=== PATIENT | male | born 1970 | race Caucasian/White ===

== ENCOUNTER 2017-11-26 23:09 | Emergency (ER) | payer OTHER ==
[~2017-11-26] VITALS: Ht 185.4 cm; Wt 111.1 kg
[~2017-11-26 23:09] MED LIST: ASPERDRINK81 MG PO; BYSTOLIC 5 MG5 M1 PO; CLONAZEPAM 0.50.5 M1 PO; CRESTOR40 MG PO; FLOVENT DISKUS50 MCG IH; IMDUR30 MG PO; PROAIR HFA8.5 GM IH; RANEXA500 MG PO
[2017-11-26] MEDS ORDERED: PLAVIX 75 MG TA75 M1 PO (23:24)
[2017-11-26] MEDS ORDERED: BENICAR40 MG PO (23:28)
[2017-11-26] MEDS ORDERED: PROTONIX40 M1 PO (23:29)
[2017-11-26] MEDS ORDERED: COZAAR 50 MG TA50 M2 PO (23:29)
[2017-11-26] MEDS ORDERED: LISINOPRIL10 MG PO (23:29)
== END 2017-11-26 23:55 | disposition home or self-care (01) ==
LOC: ER 23:09
DX: R04.0 Epistaxis (principal); I25.10 Atherosclerotic heart disease of native coronary artery without angina pectoris; F17.210 Nicotine dependence, cigarettes, uncomplicated; F41.9 Anxiety disorder, unspecified; Z90.89 Acquired absence of other organs; Z98.52 Vasectomy status; Z88.1 Allergy status to other antibiotic agents

== ENCOUNTER 2017-12-02 07:21 | Day surgery (SDC) | payer OTHER ==
[~2017-12-02] VITALS: Ht 182.9 cm; Wt 111.1 kg
--- NOTE | ~2017-12-02 | O ---
[facility] [place] [address] OPERATIVE REPORT Name: JONE SOUZA Liza Room #: 150-9 [facility]..#: [id number] Admission: 12/02/17 Attend Phys: Golden Baker MD Discharge: Date of : 70 Report #: [id number] THIS REPORT FOR: //name// CC: Av Baker DATE OF SERVICE: 12/02/2017 PREOPERATIVE DIAGNOSES: Deviated nasal septum, epistaxis. POSTOPERATIVE DIAGNOSES: Deviated nasal septum, epistaxis. OPERATIVE PROCEDURE: Nasal septoplasty, endoscopic control of epistaxis. ANESTHESIA: General by laryngeal mask. DESCRIPTION OF PROCEDURE: The patient was taken to the operating room and placed in supine position. General anesthesia was induced by laryngeal mask. Once adequate general anesthesia was obtained, local nasal anesthesia was induced by submucoperichondrial injection of 1% lidocaine with 1:100,000 epinephrine and topical application of cocaine solution. The patient was then draped in a sterile manner. The nasal endoscope was used to visualize the left nasal cavity. There were areas that had been previously cauterized, and I debrided these areas of granulation tissue. There was some mild oozing in these areas, but there was no evidence of severe blood vessel bleeding. Nasal septoplasty performed by placing a hemitransfixion incision on the left side of the nose, and the mucoperichondrium and mucoperiosteum were elevated off the septum. The cartilage was incised from the bony cartilaginous junction, and then, a portion of cartilage and bone was removed from the midportion of the septum. Along the floor was a septal spur consisting of hypertrophic cartilage and a fracture of the maxillary crest. The cartilage was removed as a long strip, and the maxillary crest was rongeured and infractured. After these maneuvers, the septum sat more in the midline. The hemitransfixion incision was then closed with 4-0 chromic suture and a 4-0 plain mattress sutures placed as well. Once again, the nasal endoscope was used to visualize the left nasal cavity. I recauterized the areas at the base of inferior turbinate and then along the inferior edge of the inferior turbinate, and then, I moved the middle turbinate laterally and cauterized the area on the superior septum. FloSeal was placed into the nasal cavity to promote hemostasis. The patient tolerated the procedure well. Blood loss was approximately 10 mL. The patient was then awoken and taken to the recovery room in stable condition for postoperative monitoring. By: [id number] Golden Baker MD /patricio
--- NOTE | ~2017-12-02 | EKG ---
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 : 1970 Requested By: Golden Baker Order Number: [id number] MD: Shan Fatima Measurements Intervals [place] Rate: 72 P: 39 NE: 156 QRS: 17 QRSD: 88 T: 9 QT: 396 QTc: 434 Interpretive Statements Sinus rhythm Probable left ventricular hypertrophy ST elev, probable normal early repol pattern No previous ECG available for comparison Electronically Signed On 12-02-2017 17:03:10 CDT by Shan Fatima [email or web address] <ELECTRONICALLY SIGNED> By: Shan Fatima MD, [facility] 12/02/17 1703 820 0 Shan Fatima MD, FACC /EPI
--- NOTE | ~2017-12-02 | H ---
[facility] [place] [address] HISTORY AND PHYSICAL Name: JONE SOUZA Room #: 150-9 [facility]..#: [id number] Admission: 12/02/17 Attend Phys: Golden Baker MD Discharge: Date of : 70 Report #: [id number] THIS REPORT FOR: //name// CC: Av Baker DATE OF SERVICE: 12/02/2017 HISTORY: The patient has been having problems with nosebleeds. I have seen him twice in the last week with bleeding from the left side of his nose. I have cauterized on the septum and lateral wall of the nasal cavity and he continues to have problems with nosebleeds. He has a deviated nasal septum with difficulty breathing through his nose. PAST MEDICAL HISTORY: Otherwise not significant. ALLERGIES: He has no known drug allergies. PHYSICAL EXAMINATION: He has a deviated nasal septum with a septal spur along the floor on the right side with deviation to the left. He had a bleeding site on the superior septum at the midportion, which was cauterized. His oropharynx and oral cavity were clear. He had no adenopathy or masses in his neck. IMPRESSION: Deviated nasal septum and epistaxis. PLAN: Nasal septoplasty and endoscopic control of epistaxis. By: [id number] Golden Baker MD /nt
[~2017-12-02 07:21] MED LIST changes: +BENICAR40 MG PO; +COZAAR 50 MG TA50 M2 PO; +LISINOPRIL10 MG PO; +PLAVIX 75 MG TA75 M1 PO; +PROTONIX40 M1 PO
[2017-12-02 08:27] LABS: HEMATOCRIT 38.9 % (42.0-52.0); HEMOGLOBIN 13.5 gm/dL (14.0-18.0); MCH 29.4 pg (26.0-34.0); MCHC 34.8 g/dL (28.0-37.0); MCV 84.7 fL (80.0-100.0); RBC 4.6 mil/uL (4.50-6.00); RDW 14.3 % (10.5-14.5); WBC 6.7 thou/uL (4.0-11.0)
[2017-12-02 09:34] VITALS: BP 143/78
[2017-12-02 10:28] VITALS: BP 143/78
== END 2017-12-02 10:54 | disposition home or self-care (01) ==
LOC: TBA 07:21 → GI 07:21 → TBA 07:25 → GI 10:54
PROVIDERS: Otolaryngology
DX: J34.2 Deviated nasal septum (principal); R04.0 Epistaxis; I21.3 ST elevation (STEMI) myocardial infarction of unspecified site
CPT/HCPCS: 50010; 50101; 50386; 50398; 51751; 56524; 56528